=== PATIENT | female | born 1975 | race Caucasian/White ===

== ENCOUNTER 2018-04-05 19:01 | Outpatient (REF) | payer BC, SELFPAY | END 2018-04-05 19:21 | LOC: NCHCN 19:01 | PROVIDERS: PCP Family Medicine; Visit Provider Physician Assistant Medical | DX: N76.0 Acute vaginitis (principal) | CPT/HCPCS: 87480; 87510; 87660 ==

== ENCOUNTER 2018-11-08 10:28 | Outpatient (REF) | payer BC, SELFPAY ==
[2018-11-08 20:43] LABS: Calculated LDL 111 mg/dL; Cholesterol 177 mg/dL (50-200); Glucose 100 mg/dL (70-100); HDL Cholesterol 53 mg/dL (40-60); Triglyceride 67 mg/dL (30-150)
== END 2018-11-08 10:48 ==
LOC: NCHCN 10:28
PROVIDERS: PCP Family Medicine; Visit Provider Family Medicine
DX: Z00.00 Encounter for general adult medical examination without abnormal findings (principal)
CPT/HCPCS: 80061; 82947; 83721

== ENCOUNTER 2018-11-15 02:24 | Outpatient (CLI) | payer BC, SELFPAY ==
--- NOTE | 2018-11-15 13:46 | DI.MAMMO_ITS ---
SYMPTOM/DIAGNOSIS: SCREENING, Z12.31, PREVENTIVE CARE, Z00.00, FAMILY H/O BREAST CA, Z80.3 MAMMOGRAMS: Mammograms were interpreted according to the usual protocol including computer analysis with CAD system, tomosynthesis and C view imaging. Comparison is made with 2016. The breasts are composed of heterogeneously dense fibroglandular tissue, breast density, Category C. No suspicious masses or suspicious microcalcifications are seen. There has been no significant change. IMPRESSION: Category 1,. negative mammogram. Yearly screening mammography is recommended. [facility] ASSESSMENT OF FINDINGS: Negative. Category 1. Patient will receive a letter notifying them of these results. Bi-RADS category C. The breasts are heterogeneously dense, which may obscure small masses.
== END 2018-11-15 02:44 ==
PROVIDERS: PCP Family Medicine; Visit Provider Family Medicine
DX: Z00.00 Encounter for general adult medical examination without abnormal findings (principal); Z12.31 Encounter for screening mammogram for malignant neoplasm of breast; Z80.3 Family history of malignant neoplasm of breast
CPT/HCPCS: 77063; 77067

== ENCOUNTER 2018-11-18 12:10 | Outpatient (REF) | payer BC, SELFPAY ==
[2018-11-20 13:33] LABS: Chlamydia Result Negative; GC Result Negative; Specimen Description CERVIX
== END 2018-11-18 12:30 ==
LOC: NCHCN 12:10
PROVIDERS: PCP Family Medicine; Visit Provider Nurse Practitioner Family
DX: R10.2 Pelvic and perineal pain (principal); N89.8 Other specified noninflammatory disorders of vagina; F41.9 Anxiety disorder, unspecified; Z11.3 Encounter for screening for infections with a predominantly sexual mode of transmission
CPT/HCPCS: 87491; 87591; 87480; 87510; 87660

== ENCOUNTER 2020-06-29 19:44 | Outpatient (REF) | payer BC, SELFPAY | END 2020-06-29 19:45 | disposition home or self-care (01) | LOC: NCHCN 19:44 | PROVIDERS: PCP Family Medicine; Visit Provider Physician Assistant Medical | DX: N89.8 Other specified noninflammatory disorders of vagina (principal) | CPT/HCPCS: 87480; 87510; 87660 ==

== ENCOUNTER 2021-03-03 01:11 | Outpatient (CLI) | payer BC, SELFPAY ==
--- NOTE | 2021-03-03 16:00 | DI.MAMMO_ITS ---
Exam(s) MAMMO SCREENING EXAM: MAMMO SCREENING CLINICAL HISTORY: PREVENTIVE HEALTH CARE Z00.00, FAM HX BREAST CANCER Z80.3. TECHNIQUE: Bilateral full field digital CC and MLO mammographic images were obtained with 3D tomosyn thesis and utilizing computer aided detection (CAD). COMPARISON: Prior mammograms dating back to 2015, the most recent being November 2018. FINDINGS: The fibroglandular tissue is moderately dense. No new significant radiograph findings in the right breast. Mildly asymmetric tissue in the upper-outer quadrant of the left breast located 7 cm in from the nipp le exhibits CAD designations on both views. Spot compression views and ultrasound recommended There is no significant architectural distortion nor skin thickening-retraction. IMPRESSION: Moderately dense fibroglandular tissue. Asymmetric density upper-outer quadrant left breast. Spot c ompression view and ultrasound recommended. BI-RADS Category 0 - Assessment Incomplete: Need additional imaging evaluation Breast Density - Category C - Heterogeneously dense Breast density Category C or D implies that the patient has dense breast tissue. Dense breast tissue can make it harder to find cancer on a mammogram. Dense breast tissue is also associated with an incr eased risk of breast cancer. This information about the result of the mammogram report was provided to the patient to raise their awareness. Use this report when you speak with the patient about their risks for breast cancer, which includes their family history. At that time, you may recommend additional screening tests (Ultrasoun d or MRI) as these tests may add significant information. A negative radiographic report should not delay biopsy if a dominant or clinically suspicious mass is present. Up to ten percent of cancers are not identified on mammography. A negative report may reinforce clinical impression. Adenosis and dense breasts may obscure an underlying neoplasm. False positive reports average 6 to 10%. Patient will receive a letter notifying them of these results.
== END 2021-03-03 01:31 ==
PROVIDERS: PCP Family Medicine; Visit Provider Family Medicine
DX: Z00.00 Encounter for general adult medical examination without abnormal findings (principal); Z12.31 Encounter for screening mammogram for malignant neoplasm of breast; R92.8 Other abnormal and inconclusive findings on diagnostic imaging of breast; Z80.3 Family history of malignant neoplasm of breast
CPT/HCPCS: 77063; 77067

== ENCOUNTER 2021-03-25 00:22 | Outpatient (CLI) | payer BC, SELFPAY ==
--- NOTE | 2021-03-25 14:30 | DI.MAMMO_ITS ---
Exam(s) MG MAMMO SCREEN CALL BACK UNI US BREAST LT COMPLETE EXAM: MG MAMMO SCREEN CALL BACK UNI and U/S breast LT complete CLINICAL HISTORY: ASYMMETRIC DENSITY LT BREAST. TECHNIQUE: Craniocaudal and mediolateral oblique Full Field Digital Mammography views of the left br east with Computer Aided Diagnosis followed by Tomosynthesis and left breast ultrasound. COMPARISON: Priors available for comparison. FINDINGS: Mammography/Tomosynthesis: Masses/Architectural Distortion: None seen. Microcalcifictions: No suspicious pleomorphic-type are seen. Skin Thickening/Nipple Retraction: None. Left breast US: Echotexture: Normal appearance of the glandular tissue. Shadowing: No suspicious foci. Cyst: There are 2 cysts seen in the left breast. The larger measures 11 x 4 x 10 mm and is located a t the 8 o'clock position 3 cm from the nipple. There is a 4 x 3 x 3 mm simple cyst at the 9 o'clock position 1 cm from the nipple. There is a 5 x 2 x 5 mm hypoechoic nodule at the 3 o'clock position 8 cm from the nipple with an appearing suggestive of a lymph node. Solid lesions: None seen. Ductal dilation: None. IMPRESSION: 1. No evidence of malignancy is noted. 2. Unless there is more urgent need, follow-up screening mammography is recommended, as per [place] [employer] guidelines. 3. The findings were discussed with the patient on the date of the examination. BI-RADS Category 2 - Benign Findings Breast Density - Category C - Heterogeneously dense Breast density Category C or D implies that the patient has dense breast tissue. Dense breast tissue can make it harder to find cancer on a mammogram. Dense breast tissue is also associated with an incr eased risk of breast cancer. This information about the result of the mammogram report was provided to the patient to raise their awareness. Use this report when you speak with the patient about their risks for breast cancer, which includes their family history. At that time, you may recommend additional screening tests (Ultrasoun d or MRI) as these tests may add significant information. A negative radiographic report should not delay biopsy if a dominant or clinically suspicious mass is present. Up to ten percent of cancers are not identified on mammography. A negative report may reinforce clinical impression. Adenosis and dense breasts may obscure an underlying neoplasm. False positive reports average 6 to 10%. Patient will receive a letter notifying them of these results.
== END 2021-03-25 00:42 ==
PROVIDERS: PCP Family Medicine; Visit Provider Family Medicine
DX: Z12.31 Encounter for screening mammogram for malignant neoplasm of breast (principal); R92.8 Other abnormal and inconclusive findings on diagnostic imaging of breast
CPT/HCPCS: 76642; 77063; 77067

== ENCOUNTER 2022-01-26 16:10 | Outpatient (REF) | payer BC, SELFPAY ==
--- NOTE | 2022-01-26 15:00 | PAPFT_PTH ---
PATIENT: Iveth Flores LOC: [facility]#:[id number] AGE/SX: 46/F ROOM: RE01/26/[address]: Shelia Bowden V : 1975 BED: DIS: 01/26/2022 SPEC #: [id number] RECD: 01/26/22 18:24 STATUS: VERENICE REQ #: [id number] BAO: 01/26/22 15:[address]: Shelia Bowden V DEPT: [facility] Cytology RECD BY: Jessa Sanchez Tissues: 1 - CX/ENDOCX FOR PAP SMEARS Procedures: PAP THIN PREP/UVM Screening HPV DNA PROBE Comments: [id number]
== END 2022-01-26 16:11 | disposition home or self-care (01) ==
LOC: NCHCN 16:10
PROVIDERS: PCP Family Medicine; Visit Provider Family Medicine
DX: Z12.4 Encounter for screening for malignant neoplasm of cervix (principal); Z11.51 Encounter for screening for human papillomavirus (HPV)
CPT/HCPCS: 88142; 87624

== ENCOUNTER → 2022-04-11 01:34 | Outpatient (CLI) | payer BC, SELFPAY ==
--- NOTE | 2022-04-11 | DI.MAMMO_ITS ---
Exam(s) MAMMO SCREENING EXAM: MAMMO SCREENING CLINICAL HISTORY: SCREENING, Z12.31, FAM HX BREAST CA, Z80.3, PREVENTATIVE CARE, Z00.00. TECHNIQUE: Bilateral full field digital CC and MLO mammographic images were obtained with 3D tomosyn thesis and utilizing computer aided detection (CAD). COMPARISON: Prior mammograms were reviewed. Diagnostic mammogram and ultrasound of 03/25/2021 also reviewed. FINDINGS: There has been no significant change in the appearance and distribution of the fibroglandular tissue. No new obvious significant radiographic findings in the left breast. In the right breast on the CC view there is an asymmetric density-possible nodule measuring 5 x 6 mil limeters located 6 cm in from the nipple. No malignant-appearing microcalcification groups in this r egion or elsewhere in either breast. There is no significant architectural distortion nor skin thickening-retraction. IMPRESSION: 1. Towards the posterior aspect of the right breast there is an asymmetric density-possible nodule se en on the CC view as described above. Spot compression view and ultrasound recommended.. 2. Recommend that the ultrasound examination be a bilateral study to both visualize the present right breast finding and review the findings which were evident in the opposite-left breast on the ultraso und examination of 03/25/2021. BI-RADS Category 0 - Assessment Incomplete: Need additional imaging evaluation Breast Density - Category C - Heterogeneously dense Breast density Category C or D implies that the patient has dense breast tissue. Dense breast tissue can make it harder to find cancer on a mammogram. Dense breast tissue is also associated with an incr eased risk of breast cancer. This information about the result of the mammogram report was provided to the patient to raise their awareness. Use this report when you speak with the patient about their risks for breast cancer, which includes their family history. At that time, you may recommend additional screening tests (Ultrasoun d or MRI) as these tests may add significant information. A negative radiographic report should not delay biopsy if a dominant or clinically suspicious mass is present. Up to ten percent of cancers are not identified on mammography. A negative report may reinforce clinical impression. Adenosis and dense breasts may obscure an underlying neoplasm. False positive reports average 6 to 10%. Patient will receive a letter notifying them of these results.
== END ==
PROVIDERS: PCP Family Medicine; Visit Provider Family Medicine
DX: Z12.31 Encounter for screening mammogram for malignant neoplasm of breast (principal); R92.8 Other abnormal and inconclusive findings on diagnostic imaging of breast
CPT/HCPCS: 77063; 77067

== ENCOUNTER 2022-05-02 02:00 | Outpatient (CLI) | payer BC, SELFPAY ==
--- NOTE | 2022-05-02 | DI.US_ITS ---
Exam(s) MG MAMMO SCREEN CALL BACK UNI US BREAST LT COMPLETE US BREAST RT COMPLETE EXAM: MG MAMMO SCREEN CALL BACK UNI-RIGHT AND BILATERAL COMPLETE BREAST ULTRASOUND. CLINICAL HISTORY: F/U ABNL MAMMO, ASYMMETRIC DENSITY RT BREAST. TECHNIQUE: Unilateral spot mammographic view of the right breast obtained with 3D tomosynthesisand u tilizing computer aided detection (CAD). . Complete BILATERAL breast Ultrasound was also performed, including all 4 quadrants, the retroareolar regions, and both axillary regions. A bilateral study was performed because of findings on the recen t right breast mammogram and as follow-up 4 findings on a prior left breast ultrasound of April 04. COMPARISON: Prior mammograms were reviewed. This additional imaging was performed due to findings described on the recent screening mammogram of 04/11/2022. FINDINGS: DIAGNOSTIC RIGHT BREAST MAMMOGRAM: Additional mammographic views performed todayrender this area less concerning. COMPLETE BILATERAL BREAST ULTRASOUND: RIGHT BREAST ULTRASOUND: There is a solitary finding at the 6 o'clock position which possibly corresponds to the finding on e recent screening mammogram. This has appearance of a benign wider than taller septated/hemorrhagic cyst which measures approximately 4 x 2 mm. No other focal findings in all 4 quadrants of the right breast. Scanning of the right axilla reveals no significant adenopathy. LEFT BREAST ULTRASOUND: At 3 o'clock position there is a benign-appearing wider than taller 9 x 3 mm deep cyst. At the 8 o'clock position there is a 9 x 3 millimeter hemorrhagic cyst. No other focal ultrasound findings in all 4 quadrants. Scanning of the left axilla is negative for significant adenopathy. IMPRESSION: 1. Benign-appearing bilateral findings as described above. 2. Appropriate follow-up, as discussed by myself with the patient today, is repeat bilateral breast imaging in 6 months. BI-RADS Category 3 - 6 month - Probably Benign Finding: Recommend follow-up mammography in 6 months Breast Density - Category C - Heterogeneously dense Breast density Category C or D implies that the patient has dense breast tissue. Dense breast tissue can make it harder to find cancer on a mammogram. Dense breast tissue is also associated with an incr eased risk of breast cancer. This information about the result of the mammogram report was provided to the patient to raise their awareness. Use this report when you speak with the patient about their risks for breast cancer, which includes their family history. At that time, you may recommend additional screening tests (Ultrasoun d or MRI) as these tests may add significant information. A negative radiographic report should not delay biopsy if a dominant or clinically suspicious mass is present. Up to ten percent of cancers are not identified on mammography. A negative report may reinforce clinical impression. Adenosis and dense breasts may obscure an underlying neoplasm. False positive reports average 6 to 10%. Patient will receive a letter notifying them of these results.
== END 2022-05-02 02:20 ==
LOC: DI 02:00
PROVIDERS: PCP Family Medicine; Visit Provider Family Medicine
DX: R92.8 Other abnormal and inconclusive findings on diagnostic imaging of breast (principal); R92.2 Inconclusive mammogram
CPT/HCPCS: 76642; 77063; 77067

== ENCOUNTER 2022-11-08 02:17 | Outpatient (CLI) | payer BC, SELFPAY ==
--- NOTE | 2022-11-08 09:40 | DI.MAMMO_ITS ---
Exam(s) US BREAST RT LIMITED MG MAMMO DIAGNOSTIC BI US BREAST LT LIMITED EXAM: MG MAMMO DIAGNOSTIC BI and bilateral ultrasound breast limited CLINICAL HISTORY: SCREENING, Z12.31; H/O BREAST CYST, Z87.898; FAMILY H/O BREAST CA, Z80.3. TECHNIQUE: Craniocaudal and mediolateral oblique Full Field Digital Mammography views of the bilater al breast with Computer Aided Diagnosis followed by Tomosynthesis and bilateral breast ultrasound. COMPARISON: Comparison is made with prior examinations. FINDINGS: Mammography/Tomosynthesis: Masses/Architectural Distortion: None seen. Microcalcifictions: No suspicious pleomorphic-type are seen. Skin Thickening/Nipple Retraction: None. Bilateral limited breast US: Echotexture: Normal appearance of the glandular tissue. Shadowing: No suspicious foci. Cyst: None. Solid lesions: In the left breast, the previously seen lesion is not visualized on the current examin ation. In the left breast, the solid radially oriented hypoechoic lesions at 6 and 8 o'clock are unc hanged. Ductal dilation: None. IMPRESSION: 1. No evidence of malignancy is noted. 2. A six-month follow-up ultrasound should be obtained at the time of mammography for re-evaluation o f the left breast lesions. 3. The findings were discussed with the patient on the date of the examination. BI-RADS Category 3 - 6 month - Probably Benign Finding: Recommend follow-up imaging in 6 months Breast Density - Category C - Heterogeneously dense Breast density Category C or D implies that the patient has dense breast tissue. Dense breast tissue can make it harder to find cancer on a mammogram. Dense breast tissue is also associated with an incr eased risk of breast cancer. This information about the result of the mammogram report was provided to the patient to raise their awareness. Use this report when you speak with the patient about their risks for breast cancer, which includes their family history. At that time, you may recommend additional screening tests (Ultrasoun d or MRI) as these tests may add significant information. A negative radiographic report should not delay biopsy if a dominant or clinically suspicious mass is present. Up to ten percent of cancers are not identified on mammography. A negative report may reinforce clinical impression. Adenosis and dense breasts may obscure an underlying neoplasm. False positive reports average 6 to 10%. Patient will receive a letter notifying them of these results.
== END 2022-11-08 02:37 ==
PROVIDERS: PCP Family Medicine; Visit Provider Family Medicine
DX: Z12.31 Encounter for screening mammogram for malignant neoplasm of breast (principal); Z87.898 Personal history of other specified conditions; Z80.3 Family history of malignant neoplasm of breast
CPT/HCPCS: 76642; 77062; 77066; G0279

== ENCOUNTER 2023-02-23 04:07 | Outpatient (CLI) | payer BC, SELFPAY ==
[2023-02-23 08:20] LABS: HCT 44.7 % (36.0-46.0); HGB 14.6 g/dL (11.2-15.7)
[2023-02-23 09:04] LABS: Ferritin 48 ng/mL (8-252)
== END 2023-02-23 04:08 | disposition home or self-care (01) ==
LOC: LBO 04:12
PROVIDERS: PCP Family Medicine; Visit Provider Family Medicine
DX: Z00.00 Encounter for general adult medical examination without abnormal findings (principal); G47.30 Sleep apnea, unspecified
CPT/HCPCS: 36415; 82728; 85014; 85018

== ENCOUNTER → 2023-05-25 00:03 | Outpatient (CLI) | payer BC, SELFPAY ==
--- NOTE | 2023-05-25 | DI.US_ITS ---
Exam(s) US BREAST LT COMPLETE MG MAMMO DIAGNOSTIC UNI EXAM: MG MAMMO DIAGNOSTIC UNI-LEFT AND COMPLETE LEFT BREAST ULTRASOUND CLINICAL HISTORY: HX BREAST CYST Z87.898 6 MO FU LEFT. TECHNIQUE: Unilateral LEFT BREAST CC AND MLO mammographic images were obtained with 3D tomosynthesis technique and utilizing computer aided detection (CAD). COMPLETE LEFT BREAST ULTRASOUND performed including all 4 quadrants as well as the left axilla. COMPARISON: Prior mammograms were reviewed, as was prior ultrasound. FINDINGS: Diagnostic left breast mammogram: No spiculated masses nor malignant-appearing microcalcification groups. No new architectural distortion or skin thickening-traction. Complete left breast ultrasound: No evidence of solid or significant cystic lesions in all 4 quadrants. The previously described find ings are no longer seen implying there probably hemorrhagic microcysts. Scanning of the left axilla is negative for adenopathy. IMPRESSION: No radiographic evidence of malignancy Negative complete left breast ultrasound Appropriate follow-up is to keep this patient on a yearly mammogram schedule, this implying that her next bilateral mammogram would be in October or November 2023, with earlier imaging if a self detected [place] ast change is noted.. The patient was informed of the findings and follow-up recommendations prior to leaving the [facility]. BI-RADS Category 2 - Benign Findings Breast Density - Category C - Heterogeneously dense Breast density Category C or D implies that the patient has dense breast tissue. Dense breast tissue can make it harder to find cancer on a mammogram. Dense breast tissue is also associated with an incr eased risk of breast cancer. This information about the result of the mammogram report was provided to the patient to raise their awareness. Use this report when you speak with the patient about their risks for breast cancer, which includes their family history. At that time, you may recommend additional screening tests (Ultrasoun d or MRI) as these tests may add significant information. A negative radiographic report should not delay biopsy if a dominant or clinically suspicious mass is present. Up to ten percent of cancers are not identified on mammography. A negative report may reinforce clinical impression. Adenosis and dense breasts may obscure an underlying neoplasm. False positive reports average 6 to 10%. Patient will receive a letter notifying them of these results.
== END ==
PROVIDERS: PCP Family Medicine; Visit Provider Family Medicine
DX: Z12.31 Encounter for screening mammogram for malignant neoplasm of breast (principal); N64.89 Other specified disorders of breast
CPT/HCPCS: 76642; 77061; 77065; G0279

== ENCOUNTER 2023-11-21 18:25 | Outpatient (REF) | payer BC, SELFPAY ==
[2023-11-21 14:09] LABS: Bacteria Negative HPF (Negative); C & S Indicated? C&S Done As Ordered; Casts Negative LPF (Negative); Crystals Negative HPF (Negative); Epithelial Cells Rare HPF (Negative); Mucus Negative (Negative); RBC Negative HPF (0-2); WBC Negative HPF (0-5)
== END 2023-11-21 18:26 | disposition home or self-care (01) ==
LOC: NCHCN 18:25
PROVIDERS: PCP Family Medicine; Visit Provider Physician Assistant Medical
DX: R82.998 Other abnormal findings in urine (principal)
CPT/HCPCS: 81015; 87086

== ENCOUNTER 2024-04-28 02:05 | Outpatient (CLI) | payer BC, SELFPAY ==
--- NOTE | 2024-04-28 | DI.MAMMO_ITS ---
Exam(s) MAMMO SCREENING EXAM: MAMMO SCREENING CLINICAL HISTORY: Screening, Z12.31 TECHNIQUE: Mammograms were interpreted according to the usual protocol including computer analysis w [employer] CAD system, tomosynthesis and C-view imaging. COMPARISON: 2015 through 2023 FINDINGS: The breasts are composed of scattered fibroglandular densities, Breast Density category B. No suspicious masses or suspicious microcalcifications are seen. No skin thickening or abnormal axillary lymph nodes are seen. There has been no significant change from prior exams. IMPRESSION: BI-RADS Category 1, Negative mammogram Yearly screening mammography is recommended. Breast Density - Category B, scattered fibroglandular densities. A negative radiographic report should not delay biopsy if a dominant or clinically suspicious mass is present. Up to ten percent of cancers are not identified on mammography. A negative report may reinforce clinical impression. Adenosis and dense breasts may obscure an underlying neoplasm. False positive reports average 6 to 10%. Patient will receive a letter notifying them of these results.
== END 2024-04-28 02:25 ==
LOC: DI 02:06
PROVIDERS: PCP Family Medicine; Visit Provider Family Medicine
DX: Z12.31 Encounter for screening mammogram for malignant neoplasm of breast (principal); R92.323 Mammographic fibroglandular density, bilateral breasts
CPT/HCPCS: 77063; 77067